=== PATIENT | male | born 1970 | race Caucasian/White ===

== ENCOUNTER 2022-08-30 14:26 | Emergency (ER) | payer OTHER ==
[~2022-08-30] VITALS: Ht 188 cm; Wt 102.8 kg
[2022-08-30] MEDS ORDERED: METFORMIN HCL500 MG PO (17:00)
[2022-08-30] MEDS ORDERED: HUMULIN N100 UNIT/3 SUB-Q (17:00)
[2022-08-30] MEDS ORDERED: AMOX TR-K CLV1 EAC1 PO (17:01)
[2022-08-30] MEDS ORDERED: INSULIN GL100 UNIT/2 SUB-Q (17:01)
[2022-08-30] MEDS ORDERED: SULFAMETHOXAZO1 EAC1 PO (17:02)
[2022-08-30] MEDS ORDERED: KRISTALOSE20 GM PO (18:55)
== END 2022-08-30 19:10 | disposition home or self-care (01) ==
LOC: ED 14:26
DX: K59.00 Constipation, unspecified (principal); E11.9 Type 2 diabetes mellitus without complications; Z79.84 Long term (current) use of oral hypoglycemic drugs; Z79.4 Long term (current) use of insulin; Z79.899 Other long term (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 therapy
CPT/HCPCS: 36415; 74022; 80053; 81003; 83690; 85025; 96374; 99284-25; J2405; J7030

== ENCOUNTER 2022-09-07 09:48 | Emergency (ER) | payer OTHER ==
[~2022-09-07] VITALS: Ht 188 cm; Wt 102.5 kg
[~2022-09-07 09:48] MED LIST: AMOX TR-K CLV1 EAC1 PO; HUMULIN N100 UNIT/3 SUB-Q; INSULIN GL100 UNIT/2 SUB-Q; KRISTALOSE20 GM PO; METFORMIN HCL500 MG PO; SULFAMETHOXAZO1 EAC1 PO
--- OUTSIDE RECORDS SUMMARY | 2022-09-07 09:56 | XMS ---
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 Allison VISIT COUNT (12 MO.) 3 Rayshawn Rivero Grabiel [address] [place] [address] TOTAL 5 NOTE: Visits indicate total known visits. ED/UCC VISIT TRACKING (12 MO.) 09/07/2022 09:[address] [facility] [place] TYPE: Emergency COMPLAINT: - SOB, DIZZY, VOMITING, R SIDE RIB PAIN 08/30/2022 14:[address] [facility] [place] TYPE: Emergency COMPLAINT: - UPPER R ABD/CHEST, R FLANK PAIN DIAGNOSES: - Type 2 diabetes mellitus without complications - Other assisted (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 therapy - longterm (current) use of oral hypoglycemic drugs - longterm (current) use of insulin - Constipation, unspecified - Upper abdominal pain, unspecified 04/30/2022 06:27 [facility] Simons[facility]abiel [facility] [place] TYPE: Emergency DIAGNOSES: - Toe Pain 04/22/2022 01:05 [facility] Simons[facility]abiel [facility] [place] TYPE: Emergency DIAGNOSES: - Unspecified open wound of unspecified toe(s) with damage to nail, initial encounter - Ripped off toenail - Pain in left knee - Toe Injury - Fall on same level from slipping, tripping and stumbling with subsequent striking against other object, initial encounter - Abrasion, left knee, initial encounter - Encounter for immunization - Type 2 diabetes mellitus with hyperglycemia 12/22/2021 13:27 [facility] SimonsGrabiel [facility] [place] TYPE: Emergency DIAGNOSES: - Type 2 diabetes mellitus with hyperglycemia - Shortness of Breath - Cough - Patient's other noncompliance with medication regimen - CHEST PAIN \E\T\E\ COUGH INPATIENT VISIT TRACKING (12 MO.) No inpatient visits to display in this time frame [email or web address]
[2022-09-07] MEDS ORDERED: SUPREP BOWEL P354 ML PO (13:17)
--- NOTE | 2022-09-08 21:50 | EKG ---
[facility] [address] [facility] [place] [address] Signed Normal sinus rhythm Left axis deviation Inferior infarct , age undetermined Abnormal ECG No previous ECGs available Confirmed by Terry Villegas MD () on 09/08/2022 9:50:14 PM Electronically Signed By: TERRY VILLEGAS MD 09/08/222149 PATIENT NAME: BERLIN LAW Electrocardiogram DATE OF : 66 PHYSICIAN: TERRY VILLEGAS MD REPORT #: [id number] REPORT IS CONFIDENTIAL AND NOT TO BE RELEASED WITHOUT AUTHORIZATION
== END 2022-09-07 13:26 | disposition home or self-care (01) ==
LOC: ED 09:48
DX: K59.00 Constipation, unspecified (principal); E11.9 Type 2 diabetes mellitus without complications; Z79.4 Long term (current) use of insulin
CPT/HCPCS: 36415; 74177; 80053; 81003; 83690; 85025; 93005; 93010; 99284-25; J7040; Q9967

== ENCOUNTER 2022-09-10 09:08 | Emergency (ER) | payer OTHER ==
[~2022-09-10] VITALS: Ht 188 cm; Wt 102.4 kg
[~2022-09-10 09:08] MED LIST changes: +SUPREP BOWEL P354 ML PO
--- OUTSIDE RECORDS SUMMARY | 2022-09-10 09:16 | XMS ---
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 Current PRIMARY CARE PHONE: Unknown GARCIA MARCANO Physician Current PHONE: [phone] Sumanth has no Care Guidelines for this patient. Allison VISIT COUNT (12 MO.) 3 Rayshawn Serna [address] [place] [address] TOTAL 6 NOTE: Visits indicate total known visits. 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 - Constipation, unspecified - Upper abdominal pain, unspecified - Type 2 diabetes mellitus without complications - Other fpc (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 therapy 04/30/2022 06:27 [facility] [place] TYPE: Emergency DIAGNOSES: - Toe Pain 04/22/2022 01:05 [facility] [place] TYPE: Emergency DIAGNOSES: - Toe Injury - Fall on same level from slipping, tripping and stumbling with subsequent striking against other object, initial encounter - Abrasion, left knee, initial encounter - Encounter for immunization - Type 2 diabetes mellitus with hyperglycemia - Unspecified open wound of unspecified toe(s) with damage to nail, initial encounter - Ripped off toenail - Pain in left knee 12/22/2021 13:27 [facility] [place] TYPE: Emergency DIAGNOSES: - Cough - Patient's other noncompliance with medication regimen - CHEST PAIN \E\T\E\ COUGH - Type 2 diabetes mellitus with hyperglycemia - Shortness of Breath INPATIENT VISIT TRACKING (12 MO.) No inpatient visits to display in this time frame [id number]
== END 2022-09-10 13:19 | disposition home or self-care (01) ==
LOC: ED 09:08
DX: K59.00 Constipation, unspecified (principal); E11.9 Type 2 diabetes mellitus without complications; Z79.4 Long term (current) use of insulin
CPT/HCPCS: 36415; 74022; 80053; 81003; 83690; 85025; 99283-25

== ENCOUNTER 2022-10-24 10:29 | Inpatient (IN) | payer OTHER ==
[~2022-10-24] VITALS: Ht 188 cm; Wt 98.8 kg
[2022-10-24] MEDS ORDERED: METFORMIN HCL500 MG PO (12:12)
[2022-10-24] MEDS ORDERED: AMOX TR-K CLV1 EAC1 PO (12:12)
--- NOTE | 2022-10-24 15:43 | EKG ---
[facility] [address] [facility] [place] [address] Signed Normal sinus rhythm Inferior infarct (cited on or before 07-SEP-2022) Abnormal ECG When compared with ECG of 07-SEP-2022 09:55, No significant change was found Confirmed by Terry Villegas MD () on 10/24/2022 3:42:41 PM Electronically Signed By: TERRY VILLEGAS MD 10/24/22 1543 PATIENT NAME: BERLIN LAW Electrocardiogram DATE OF : 66 PHYSICIAN: TERRY VILLEGAS MD REPORT #: [id number] REPORT IS CONFIDENTIAL AND NOT TO BE RELEASED WITHOUT AUTHORIZATION
[2022-10-31] MEDS ORDERED: AMOXICILLIN500 MG PO (10:36)
[2022-10-31] MEDS ORDERED: METRONIDAZOLE500 MG PO (10:36)
[2022-10-31] MEDS ORDERED: NICOTINE LOZENGE4 MG BUCCAL (10:37)
[2022-10-31] MEDS ORDERED: IBUPROFEN600 MG PO (10:37)
--- NOTE | 2022-11-01 14:49 | PATH ---
[facility] [address] [place], [place] [address] Signed SPECIMEN(S): A LT 2ND TOE SPECIMEN SOURCE: A. LT 2ND TOE CLINICAL HISTORY: Diabetic ulcer and infection/osteomyelitis, sepsis, cellulitis. FINAL PATHOLOGIC DIAGNOSIS: Left second toe, amputation: - Skin, soft tissue, and bone with ulceration and gangrenous necrosis. - Acute inflammation focally present at inked skin resection margin. - Bone margins free of acute inflammation and necrosis. DF:cml:C2NR MICROSCOPIC EXAMINATION: Histologic sections of all submitted blocks are examined by light microscopy. These findings, together with the gross examination, support the pathologic diagnosis. GROSS DESCRIPTION: The specimen, labeled and designated "Brigette, left 2nd toe," is received in formalin and consists of toe that measures 4.0 x 2.1 x 2.1 cm. Dorsal skin shows brown-mina eschar that measures 1.5 x 0.8 cm. Distal skin is brown-mina and shows four black surgical stitches. from the toe, within the container is metatarsal bone that measures 3.2 x 1.1 x 0.9 cm. The resection margin for metatarsal bone is articulated. Perpendicular sections through the eschar show that the distal phalanx is previously removed. Sectioning through the medial phalange shows pink-mina, soft bone tissue. Proximal end of the metatarsal bone is inked and longitudinally sectioned. Sectioning shows a pink-mina, trabeculated bone surface. Specimen is left for decalcification in Decal Stat prior to processing. Cassette Summary: (A1) Perpendicular sections through the eschar and medial phalange (A2) Skin resection margin, shave and proximal and of the metatarsal bone, longitudinal section JS (under the direct supervision of a pathologist) The Gross Description was prepared using a voice recognition system. The report PATIENT NAME: BERLIN LAW PATHOLOGY DATE OF : 66 REPORT #: [id number] PHYSICIAN: ELLIS BOURGEOIS PCP: ANDRZEJ STONE PA-C REPORT IS CONFIDENTIAL AND NOT TO BE RELEASED WITHOUT AUTHORIZATION [facility] [address] [place], [place] [address] Signed was reviewed for accuracy; however, sound-alike word errors, addition and/or deletions may occur. If there is any question about this report, please contact Client Services. PERFORMING LABORATORY: The technical component was performed by [facility], [address] [place] [address] (CLIA# [id number]). Professional interpretation was performed by [facility], [facility], [address] [place] [id number] (CLIA#: [id number]) Diagnostician: Zack Hsu DO Pathologist Electronically Signed 11/01/2022 Copies: ~ PATIENT NAME: BERLIN LAW PATHOLOGY DATE OF : 66 REPORT #: [id number] PHYSICIAN: ELLIS PATHOLOGY PCP: ANDRZEJ STONE PA-C REPORT IS CONFIDENTIAL AND NOT TO BE RELEASED WITHOUT AUTHORIZATION
--- NOTE | 2022-11-06 14:21 | OR ---
[facility] [address] [place], [place] [address] Signed DATE OF OPERATION: 10/30/2022 SURGEON: Joshua Poole DPM MANAGER TALENT ACQUISITION: Joshua Brown. SPECIMEN TO PATHOLOGY: Soft tissue and bone from left 2nd digit amputation. PROCEDURE: Amputation left 2nd digit. DESCRIPTION OF PROCEDURE: The patient was brought to the operating room and placed on the table in the supine position. Anesthesia Department administered IV sedation after which a local block was given to the left foot using a total of 6 mL of 1:1 mixture, 2% lidocaine plain and 0.5% ropivacaine plain. The left leg and foot were then prepped and draped in the usual sterile manner and an Esmarch was used for hemostasis. Attention was initially directed to the left 2nd digit where a racquet style incision was made near the base of the left 2nd digit with the handle of the racquet extending on to the dorsum of the toe and up to the level of the MTPJ. The incision was initially full-thickness deep to bone. Soft tissues then reflected and the toe disarticulated at the PIPJ. The soft tissue of the distal half of the toe, which was removed at this point was noted to be necrotic to the majority of the tissue. The remaining tissue was noted to have discoloration consistent with infection/necrosis at the plantar aspect, but just the layer including tendons and tendon sheaths. The subcutaneous tissue and skin appear to remain viable. At this stage, soft tissues were reflected to expose the proximal phalanx which was then disarticulated at the MTPJ and sent with the remainder of the toe to pathology. The remaining soft tissue for the toe was debrided removing any nonviable tissue, including the tendons and the area of necrosis. The remaining tissue appeared to be viable. The surgical site was then irrigated with copious amounts of normal saline. The skin margins remodeled for closure and then calcium sulfate antibiotic beads placed within the surgical site containing vancomycin. The surgical site then closed completely with 4-0 nylon monofilament suture. Dressings then applied consisting of Adaptic, Betadine-soaked gauze, dry gauze, Flexicon, and Coban for mild compression. Electronically Signed By: JOSHUA POOLE DPM 11/06/22 1421 PATIENT NAME: BERLIN LAW OPERATIVE REPORT DATE OF : 66 REPORT #: [id number] PHYSICIAN: JOSHUA POOLE DPM PCP: ANDRZEJ STONE PA-C REPORT IS CONFIDENTIAL AND NOT TO BE RELEASED WITHOUT AUTHORIZATION [address] [address] Signed INTRAOPERATIVE COMPLICATIONS: None. ESTIMATED BLOOD LOSS: Less than 5 mL. The patient tolerated the procedure and the anesthesia well and left the operating room with vital signs stable and vascular status intact to the left foot as evidenced by hyperemia with removal of the Esmarch. Joshua Poole DPM DFPhyllis/SHENAL /[id number] Copies: ~ Electronically Signed By: JOSHUA POOLE DPM 11/06/22 1421 PATIENT NAME: BERLIN LAW OPERATIVE REPORT DATE OF : 66 REPORT #: [id number] PHYSICIAN: JOSHUA POOLE DPM PCP: ANDRZEJ STONE PA-C REPORT IS CONFIDENTIAL AND NOT TO BE RELEASED WITHOUT AUTHORIZATION
== END 2022-10-31 14:14 | disposition home or self-care (01) | DRG 854 ==
LOC: ED 10:29 → MS 12:08
PROVIDERS: ADMIT Family Medicine; ATTEND Internal Medicine
PROC: 3E03329 Introduction of Other Anti-infective into Peripheral Vein, Percutaneous Approach (ICD-10-PCS; principal; 2022-10-24)
PROC: 0Y6R0Z0 Detachment at Right 2nd Toe, Complete, Open Approach (ICD-10-PCS; 2022-10-30)
DX: A40.8 Other streptococcal sepsis (principal); L03.116 Cellulitis of left lower limb; M86.8X7 Other osteomyelitis, ankle and foot; Z20.822 Contact with and (suspected) exposure to COVID-19; Z66 Do not resuscitate; E11.69 Type 2 diabetes mellitus with other specified complication; E11.628 Type 2 diabetes mellitus with other skin complications; B19.20 Unspecified viral hepatitis C without hepatic coma; Z90.49 Acquired absence of other specified parts of digestive tract; Z98.890 Other specified postprocedural states; Z79.4 Long term (current) use of insulin; Z79.899 Other long term (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 therapy
CPT/HCPCS: 01482; 36415; 71045; 73620; 73630; 80048; 80053; 80202; 81003; 83605; 83735; 84100; 85025; 85610; 85651; 85730; 86140; 87040; 87502; 88305; 88311; 93005; 93010; A9270; C1713; C9803; J0692; J1815; J1885; J2001; J2405; J2704; J2795; J3370; J7060; J7121; U0003

== ENCOUNTER 2022-11-23 12:13 | Emergency (ER) | payer OTHER ==
[~2022-11-23] VITALS: Ht 188 cm; Wt 101.7 kg
[~2022-11-23 12:13] MED LIST changes: +AMOXICILLIN500 MG PO; +IBUPROFEN600 MG PO; +METRONIDAZOLE500 MG PO; +NICOTINE LOZENGE4 MG BUCCAL
--- OUTSIDE RECORDS SUMMARY | 2022-11-23 12:20 | XMS ---
PreManage Notification: BERLIN LAW Security Surgery Aide Events No recent Security Events currently on file CRITERIA MET - [facility] - 2 Visits in 30 Days CARE PROVIDERS -CHRIS- Dentist: Director Government [facility] DENTAL [facility] PHONE: [phone] JULIANNE GALLARDO [facility] Current PRIMARY CARE PHONE: Unknown GARCIA MARCANO Physician Metallurgical Engineering Technician Current PHONE: [phone] Sumanth has no Care Guidelines for this patient. EMariella VISIT COUNT (12 MO.) 3 Rayshawnnavneet SimonsGrabiel 5 [facility] TOTAL 8 NOTE: Visits indicate total known visits. ED/UCC VISIT TRACKING (12 MO.) 11/23/2022 12:14 [facility] [place] TYPE: Emergency COMPLAINT: - ABD PAIN 10/24/2022 10:29 [facility] [place] TYPE: Emergency COMPLAINT: - SHORTNESS OF BREATH 09/10/2022 09:09 [facility] [place] TYPE: Emergency COMPLAINT: - R RIB PAIN, SOB, CONSTIPATED DIAGNOSES: - custodial (current) use of insulin - Type 2 diabetes mellitus without complications - Constipation, unspecified 09/07/2022 09:49 [facility] [place] TYPE: Emergency COMPLAINT: - SOB, DIZZY, VOMITING, R SIDE RIB PAIN DIAGNOSES: - Constipation, unspecified - Right upper quadrant pain - custodial (current) use of insulin - Type 2 diabetes mellitus without complications 08/30/2022 14:30 [facility] [place] TYPE: Emergency COMPLAINT: - UPPER R ABD/CHEST, R FLANK PAIN DIAGNOSES: - Constipation, unspecified - Upper abdominal pain, unspecified - Type 2 diabetes mellitus without complications - Other longterm (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 therapy - custodial (current) use of oral hypoglycemic drugs - custodial (current) use of insulin 04/30/2022 06:27 [facility] [place] TYPE: Emergency DIAGNOSES: - Toe Pain 04/22/2022 01:05 [facility] [place] TYPE: Emergency DIAGNOSES: - Encounter for immunization - Type 2 diabetes mellitus with hyperglycemia - Unspecified open wound of unspecified toe(s) with damage to nail, initial encounter - Ripped off toenail - Pain in left knee - Toe Injury - Fall on same level from slipping, tripping and stumbling with subsequent striking against other object, initial encounter - Abrasion, left knee, initial encounter 12/22/2021 13:27 [facility] [place] TYPE: Emergency DIAGNOSES: - Patient's other noncompliance with medication regimen - CHEST PAIN \E\T\E\ COUGH - Type 2 diabetes mellitus with hyperglycemia - Shortness of Breath - Cough INPATIENT VISIT TRACKING (12 MO.) 10/24/2022 12:08 [facility] [place] TYPE: Medical Surgical COMPLAINT: - SEPSIS, CELLULITIS DIAGNOSES: - Cellulitis of left lower limb - Other osteomyelitis, ankle and foot - Type 2 diabetes mellitus with other specified complication - Cellulitis of left lower limb - Other osteomyelitis, ankle and foot - Type 2 diabetes mellitus with other specified complication - Other streptococcal sepsis - Unspecified viral hepatitis C without hepatic coma - Other specified postprocedural states - Sepsis, unspecified organism - Acquired absence of other specified parts of digestive tract - Do not resuscitate - Do not resuscitate - custodial (current) use of insulin - Acquired absence of other specified parts of digestive tract - Other longterm (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 therapy - Other streptococcal sepsis - 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
[2022-11-23] MEDS ORDERED: LISINOPRIL5 MG PO (12:51)
== END 2022-11-23 16:03 | disposition home or self-care (01) ==
LOC: ED 12:13
DX: R10.11 Right upper quadrant pain (principal); E11.9 Type 2 diabetes mellitus without complications; Z79.899 Other long term (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 therapy; Z79.4 Long term (current) use of insulin; Z79.84 Long term (current) use of oral hypoglycemic drugs
CPT/HCPCS: 36415; 80053; 81003; 83690; 85025; 99284

== ENCOUNTER 2022-12-09 12:06 | Emergency (ER) | payer OTHER ==
[~2022-12-09] VITALS: Ht 188 cm; Wt 101.7 kg
[~2022-12-09 12:06] MED LIST changes: +LISINOPRIL5 MG PO
[2022-12-09] MEDS ORDERED: OMEPRAZOLE20 MG PO (12:23)
--- OUTSIDE RECORDS SUMMARY | 2022-12-09 12:57 | XMS ---
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 Allison VISIT COUNT (12 MO.) 3 Rayshawnnavneet SimonsGrabiel [address] [facility] TOTAL 9 NOTE: Visits indicate total known visits. 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 [place] TYPE: Emergency COMPLAINT: - R RIB PAIN, SOB, CONSTIPATED DIAGNOSES: - Type 2 diabetes mellitus without complications - Constipation, unspecified - USP (current) use of insulin 09/07/2022 09:49 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 - Constipation, unspecified - Upper abdominal pain, unspecified 04/30/2022 06:27 [facility] [place] TYPE: Emergency DIAGNOSES: - Toe Pain 04/22/2022 01:05 [facility] [place] TYPE: Emergency DIAGNOSES: - Unspecified [...] \E\T\E\ COUGH INPATIENT VISIT TRACKING (12 MO.) 10/24/2022 12:08 [facility] [place] TYPE: Medical Surgical COMPLAINT: - SEPSIS, CELLULITIS DIAGNOSES: - Acquired absence of other specified parts of digestive tract - Sepsis, unspecified organism - Do not resuscitate - Do not resuscitate - USP (current) use of insulin - Acquired absence of other specified parts of digestive tract - 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 - Other streptococcal sepsis - 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 - Type 2 diabetes mellitus with other skin complications - USP (current) use of insulin - Type 2 diabetes mellitus with other skin complications - Contact with and (suspected) exposure to COVID-19 - Contact with and (suspected) exposure to COVID-19 - Unspecified viral hepatitis C without hepatic coma - Other specified postprocedural states - Cellulitis of left lower limb - Other osteomyelitis, ankle and foot - Type 2 diabetes mellitus with other specified complication - Cellulitis of left lower limb - Other osteomyelitis, ankle and foot - Type 2 diabetes mellitus with other specified complication - Unspecified viral hepatitis C without hepatic coma - Other streptococcal sepsis - Other specified postprocedural states [id number]
[2022-12-09] MEDS ORDERED: CARAFATE1 GM PO (14:17)
[2022-12-09] MEDS ORDERED: PROTONIX20 MG PO (14:17)
[2022-12-09 14:29] VITALS: BP 136/78
== END 2022-12-09 14:30 | disposition home or self-care (01) ==
LOC: ED 12:06
DX: R10.11 Right upper quadrant pain (principal); E11.9 Type 2 diabetes mellitus without complications; Z79.899 Other long term (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 therapy; Z79.4 Long term (current) use of insulin
CPT/HCPCS: 36415; 74177; 80053; 81003; 83690; 85025; J2270; J2405; J7030; Q9967